=== PATIENT | female | born 1960 | race Hispanic/Latino ===

== ENCOUNTER 2020-01-25 20:12 | Emergency (ER) | payer OTHER, SELFPAY ==
[2020-01-25] MEDS ORDERED: Acetaminophen 500 MG TAB ONE (21:06)
--- NOTE | 2020-01-25 21:23 | RAD ---
EXAM: Chest PA and lateral: HISTORY: Fever and cough COMPARISON: none FINDINGS: Lung sneed are clear. Vascular markings are normal. Heart and mediastinum appear unremarkable. Osseous structures are unremarkable. IMPRESSION: Unremarkable chest
== END 2020-01-25 22:08 | disposition home or self-care (01) ==
LOC: ERS 20:12
DX: B34.9 Viral infection, unspecified (principal); J06.9 Acute upper respiratory infection, unspecified; E11.9 Type 2 diabetes mellitus without complications; E03.9 Hypothyroidism, unspecified; E78.5 Hyperlipidemia, unspecified; I10 Essential (primary) hypertension; Z79.899 Other long term (current) drug therapy; Z79.82 Long term (current) use of aspirin; Z79.84 Long term (current) use of oral hypoglycemic drugs
CPT/HCPCS: 71046; 87804; 96360

== ENCOUNTER 2020-02-02 19:27 | Inpatient (IN) | payer OTHER ==
[~2020-02-02 19:27] MED LIST: Iopamidol 370 76% 100 ML VIAL ONE
[2020-02-02] MEDS ORDERED: Ondansetron PF 4 MG/2 ML Vial ONE (20:20)
[2020-02-02 20:42] LABS: #Lymphocytes 1.6 thou/uL (1.20-3.40); #Monocytes 0.4 thou/uL (0.11-0.59); #Neutrophils 7.7 thou/uL (1.40-6.50); %Eosinophils 0.1 % (0.0-10.0); %Lymphocytes 16.5 % (21.0-51.0); %Monocytes 4.1 % (0.0-10.0); %Neutrophils 79.3 % (42.0-75.0); Hemoglobin 14.1 g/dL (12.0-16.0); Mean Corpuscular HGB CONC 34.5 g/dL (32.0-36.0); Mean Corpuscular Hemoglobin 29.8 pg (27.0-31.0); Mean Corpuscular Volume 86.5 fL (78.0-98.0); Mean Platelet Volume 8.1 fL (7.4-10.4); Platelet Count 263 thou/uL (130-400); Red Blood Cell (RBC) Count 4.73 mill/uL (4.20-5.40); White Blood Cell (WBC) Count 9.7 thou/uL (4.8-10.8)
[2020-02-02 20:48] LABS: Bacteria/HPF None Seen HPF (None Seen); Bilirubin Negative (Negative); Blood, Urine 1+ (Negative); Clarity Clear (Clear); Glucose, Urine (Dipstick) Normal (Negative); Leukocyte Negative Leu/uL (Negative); Nitrite Negative (Negative); Protein, Urine (Dipstick) 30 mg/dL (Neg-Trace); RBC/HPF 0-3 HPF (0-3); Squamous Epithelial 0-3 HPF (0-3); Urobilinogen Normal mg/dL (Less than 2); WBC/HPF 0-3 HPF (0-3)
--- NOTE | 2020-02-02 20:56 | RAD ---
RADIOGRAPH CHEST 1 VIEW: DATE: 02/02/2020 TIME: 8:51 PM HISTORY: 60-year-old female with cough COMPARISON: 01/25/2020 FINDINGS: New reticular densities at right lower lung zone. Prominent interstitial markings diffusely, especial ly at left lower lung zone, greater than previously. No cardiomegaly. No consolidation. No pneumothorax. Lateral costophrenic angles are sharp. IMPRESSION: Nonspecific mild reticular densities at the right lower lung zone, perhaps representing subsegmental atelectasis. Recommend follow-up.
[2020-02-02 21:10] LABS: ALT (SGPT) 31 U/L (8-55); AST (SGOT) 38 U/L (5-34); Albumin 3.9 g/dL (3.4-4.8); Alkaline Phosphatase 91 U/L (40-110); Anion Gap 14 mmol/L (10-20); BUN (Urea Nitrogen) 15 mg/dL (9.8-20.1); Bilirubin, Total 0.8 mg/dL (0.2-1.2); Calc. Creatinine Clearance 0 mL/min (70-130); Calcium 8.9 mg/dL (7.8-10.44); Carbon Dioxide 29 mmol/L (23-31); Chloride 91 mmol/L (98-107); Estimated GFR-MDRD 60; Globulin 4.4 g/dL (2.4-3.5); Glucose 105 mg/dL (80-115); Lipase 86 U/L (8-78); Protein, Total 8.3 g/dL (6.0-8.3); Sodium 131 mmol/L (136-145)
[2020-02-02 21:21] LABS: Potassium 2.5 mmol/L (3.5-5.1)
--- NOTE | 2020-02-02 21:41 | CT ---
CT ABDOMEN WITH CONTRAST CT PELVIS WITH CONTRAST: DATE: 02/02/2020 HISTORY: 60-year-old female with nausea, vomiting, and fever COMPARISON: None TECHNIQUE: IV injection of iodinated contrast media: administered. Oral contrast media:Not administered FINDINGS: There are multifocal patchy small ground glass opacities at the bases of the bilateral lower lobes an d right middle lobe, both centrally and in subpleural locations. There are also at least 2 small nodular consolidations at the right lung base in subpleural locations. No pleural effusion, ascites, pneumoperitoneum, or small bowel dilation. Extensive sigmoid colonic diverticulosis without diverticulitis. Left-sided calcified uterine fibroid. Questionable fatty liver. Otherwise normal liver, abdominal aorta, kidneys, adrenals, spleen, pancrea s, appendix, and urinary bladder. Cholecystectomy clips. 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 IMPRESSION: 1) multifocal pulmonary densities at the lung bases as described above are nonspecific, but this darryn shawanda can be seen with COVID-19. 2) no acute findings within abdominal cavity or pelvic cavity.
[2020-02-02] MEDS ORDERED: D5 1/2 NS w/40 mEq KCL 1,000 ML IV SCH (22:00)
[2020-02-02] MEDS ORDERED: cefTRIAXone\\ROCEPHIN 2 GM VIAL ONE (22:11)
--- NOTE | 2020-02-02 22:29 | PDOC.FPRHP ---
- History of Present Illness Chief Complaint: nausea, vomiting, diarrhea History of Present Illness: This is a 60yo F presenting to the ER with a CC of NVD. She reports her symptoms have been present over the past week. She went to the ER about a week ago and was given zofran rx. She has been unable to keep fluids down and states that she continues to have diarrhea. She endorses dry heaving and not able to eat much. She notes fever, but was negative for flu last week. She endorses general malaise. Denies any sick contacts recently. Denies any recent travel. Additionally, pt reports dry cough over last week that has improved since her last ER visit. She denies any cp, sob. No wheezing. 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 Denies contact with COVID pos pts or family. No recent travel. ED Course: 500mg azithromycin, 2g ceftriaxone, 40mEq Kcl, 1L NS, 4mg zofran, tylenol 1g - Allergies/Adverse Reactions Allergies Allergy/AdvReac Type Severity Reaction Status Date / Time No Known Drug Allergies Allergy Verified 02/03/20 02:24 - Home Medications Medication Instructions Recorded Confirmed Type Aspirin Chewable [Aspirin Chewable 81 mg PO DAILY 02/03/20 02/03/20 History Tablet] Diclofenac Potassium 50 mg PO BID 02/03/20 02/03/20 History Hydrochlorothiazide 12.5 mg PO DAILY 02/03/20 02/03/20 History Levothyroxine Sodium 100 mcg PO DAILY 02/03/20 02/03/20 History Lovastatin [Mevacor] 20 mg PO DAILY 02/03/20 02/03/20 History Metoprolol Tartrate [Lopressor] 12.5 mg PO BID 02/03/20 02/03/20 History Omeprazole 40 mg PO DAILY 02/03/20 02/03/20 History metFORMIN [Glucophage] 250 mg PO BID 02/03/20 02/03/20 History Acetaminophen [Tylenol Regular 650 mg PO Q4H PRN tab 02/04/20 Rx Strength] Acetaminophen [Tylenol Suppository] 650 mg FL Q4H PRN supp 02/04/20 Rx Azithromycin 250 mg PO QAM #4 tablet 02/04/20 Rx Guaifenesin DM 100-10 [Robitussin 15 ml PO Q4H PRN ml 02/04/20 Rx DM] Hydroxychloroquine Sulfate 200 mg PO ASDIR #10 tab 02/04/20 Rx [Plaquenil] guaiFENesin/DM ER [Mucinex DM] 2 tab PO Q12H PRN tab 02/04/20 Rx - History PMHx: Prediabetes, hypothyroidism, HLD, HTN PSHx: cholecystectomy FHx: non contributory, maternal DMII and HTN Social: Denies alcohol drug or tobacco use; lives at home with son - Review of Systems General: reports: fever/chills, weight/appetite/sleep changes, fatigue. denies : night sweats ENT: denies: nasal congestion Respiratory: reports: cough. denies: congestion, shortness of breath Cardiovascular: denies: chest pain, palpitation, edema Gastrointestinal: reports: nausea, vomiting, diarrhea. denies: constipation, abdominal pain Genitourinary: denies: dysuria Skin: denies: rashes Musculoskeletal: denies: swelling Neurological: reports: weakness. denies: syncope - Vital signs BP: 104/46, MAP: 65, Pulse: 98, Resp: 22, Temp: 102.2 (Oral), Pain: 8, O2 sat : 96 on (Room Air), Time: 02/02/2020 22:31. Weight 76kg BP: 106/57, Pulse: 92, Temp: 101.4 (Oral), Pain: 9, O2 sat: 98 on (Room Air), Time: 02/02/2020 19:28 - Physical Exam Constitutional: NAD, awake, alert and oriented, well developed HEENT: normocephalic and atraumatic, PERRLA, EOMI, grossly normal vision, grossly normal hearing Neck: supple, FROM, trachea midline Chest: no-tender to palpation Heart: RRR, normal S1/S2, no murmurs/rubs/gallops, pulses present, no edema Lungs: CTAB, no respiratory distress, good air movement, no rales/rhonchi, no wheezing, no retractions Abdomen: soft, non-tender, bowel sounds present Musculoskeletal: normal structure Neurological: no focal deficit Skin: no rash/lesions, good turgor, capillary refill <2 seconds Psychiatric: normal mood and affect FMR H&P: Results - Labs Result Diagrams: 02/04/20 04:25 02/04/20 04:25 Lab results: WBC 9.7 thou/uL (4.8-10.8) 02/02/20 20:35 Hgb 14.1 g/dL (12.0-16.0) 02/02/20 20:35 Hct 40.9 % (36.0-47.0) 02/02/20 20:35 MCV 86.5 fL (78.0-98.0) 02/02/20 20:35 Plt Count 263 thou/uL (130-400) 02/02/20 20:35 Neutrophils % 79.3 % (42.0-75.0) H 02/02/20 20:35 Sodium 131 mmol/L (136-145) L 02/02/20 20:35 Potassium 2.5 mmol/L (3.5-5.1) L* 02/02/20 20:35 Chloride 91 mmol/L (98-107) L 02/02/20 20:35 Carbon Dioxide 29 mmol/L (23-31) 02/02/20 20:35 BUN 15 mg/dL (9.8-20.1) 02/02/20 20:35 Creatinine 0.94 mg/dL (0.6-1.1) 02/02/20 20:35 Glucose 105 mg/dL (80-115) 02/02/20 20:35 Lactic Acid 1.4 mmol/L (0.5-2.2) 02/02/20 20:35 Calcium 8.9 mg/dL (7.8-10.44) 02/02/20 20:35 Total Bilirubin 0.8 mg/dL (0.2-1.2) 02/02/20 20:35 AST 38 U/L (5-34) H 02/02/20 20:35 ALT 31 U/L (8-55) 02/02/20 20:35 Alkaline Phosphatase 91 U/L (40-110) 02/02/20 20:35 Serum Total Protein 8.3 g/dL (6.0-8.3) 02/02/20 20:35 Albumin 3.9 g/dL (3.4-4.8) 02/02/20 20:35 Lipase 86 U/L (8-78) H 02/02/20 20:35 Urine Ketones 20 mg/dL (Negative) A 02/02/20 20:34 Urine Blood 1+ (Negative) A 02/02/20 20:34 Urine Nitrite Negative (Negative) 02/02/20 20:34 Ur Leukocyte Esterase Negative Carolyne/uL (Negative) 02/02/20 20:34 Urine RBC 0-3 HPF (0-3) 02/02/20 20:34 Urine WBC 0-3 HPF (0-3) 02/02/20 20:34 Ur Squamous Epith Cells 0-3 HPF (0-3) 02/02/20 20:34 Urine Bacteria None Seen HPF (None Seen) 02/02/20 20:34 - EKG Interpretation EKG: NSR rate 104, no st or t wave changes - Radiology Interpretation CT scan - abdomen Status: image reviewed by me, report reviewed by me (lower lung base changes concerning for COVID pathology, abdomen normal) FMR H&P: A/P - Problem List (1) Sepsis Status: Acute Code(s): A41.9 - SEPSIS, UNSPECIFIED ORGANISM (2) Viral illness Status: Acute (3) Hypokalemia due to excessive gastrointestinal loss of potassium Status: Acute Code(s): E87.6 - HYPOKALEMIA (4) Diabetes Status: Suspected Code(s): E11.9 - TYPE 2 DIABETES MELLITUS WITHOUT COMPLICATIONS Qualifiers: Diabetes mellitus type: type 2 (5) HTN (hypertension) Status: Acute Code(s): I10 - ESSENTIAL (PRIMARY) HYPERTENSION (6) HLD (hyperlipidemia) Status: Acute Code(s): E78.5 - HYPERLIPIDEMIA, UNSPECIFIED - Plan Sepsis: - admit to tele IP - likely 2/2 viral illness, flu neg, rvp and COVID pending - cont IVF resuscitation and zofran prn for vomiting - tylenol for fever control avoid ibuprofen for COVID concerns - check procal, cont abx based on procal results, s/p rocephin azithromycin in ED Hypokalemia 2/2 N/V/D - Will replace K as needed - Check Mg/Phos - Monitor I/Os - mIVF - Will recheck electrolytes in the AM Febrile illness, CAP vs COVID r/o CT showing multifocal atelectasis. - continue abx, may discontinue if Procal neg - Will obtain flu and RVP; COVID pending - Tylenol PRN for fever DMII - home meds, mild SS HTN - hold home meds, will monitor HLD - home meds Hypothyroidism - home meds, will obtain TSH Dispo: admit to tele, obs Code status: FULL Diet: Reg VTE: lovenox Case discussed with Dr. Wetzel Disposition/LOS: Stable, will admit to tele and replace fluids. Replace elytes. COVID and RVP pending. LOS >2 days FMR H&P: Upper Level - Plan Date/Time: 02/02/202227 Upper level h&p Addendum - Attending - Attending Attestation Date/Time: 03/09/20 [id number] I personally evaluated the patient and discussed the management with Dr. Cruz on 02/02/20. I agree with the History, Examination, Assessment and Plan documented above with any addition or exceptions noted below. 60 y.o. F with h/o Prediabetes, hypothyroidism, HLD, HTN p/w'd 1 week N/V/D, IVVD. Pt. has had dry cough as well w/o dyspnea. Admit for IVF resuscitation, PUI COVID for symptoms.
[2020-02-02] MEDS ORDERED: Acetaminophen 500 MG TAB ONE (22:46)
[2020-02-02] MEDS ORDERED: Azithromycin 500 MG VIAL ONE (22:49)
[2020-02-02 22:58] LABS: Phosphorus 2.3 mg/dL (2.3-4.7)
[2020-02-03] MEDS ORDERED: Ondansetron PF 4 MG/2 ML Vial IVP PRN (00:02)
[2020-02-03] MEDS ORDERED: HumaLOG 300 UNITS/3 ML VIAL SC PRN (00:02)
[2020-02-03] MEDS ORDERED: Ondansetron ODT 4 MG TAB PO PRN (00:02)
[2020-02-03] MEDS ORDERED: Dextrose 5% in Water 1,000 ML IV PRN (00:02)
[2020-02-03] MEDS ORDERED: Acetaminophen 650 MG Suppository PR PRN (00:02)
[2020-02-03] MEDS ORDERED: Dextrose 50% Abboject 50 ML SYRINGE SLOW IVP PRN (00:02)
[2020-02-03] MEDS ORDERED: Calcium Carbonate 500 MG ChewTAB PO PRN (00:02)
[2020-02-03] MEDS ORDERED: Guaifenesin DM 100-10/5 ML UDCUP PO PRN (00:02)
[2020-02-03] MEDS ORDERED: Potassium Chloride 40 MEQ in Sodium Chloride 0.9% 250 ML 250 ML IVPB SCH (00:15)
[2020-02-03 02:35] VITALS: BMI 31.1
[2020-02-03] MEDS: Potassium Chloride 20 MEQ in Premix Bag 1 BAG IVPB SCH ×4 (03:31→12:26)
[2020-02-03 04:46] LABS: #Basophils 0.1 thou/uL (0.0-0.2); #Lymphocytes 1.4 thou/uL (1.20-3.40); #Monocytes 0.4 thou/uL (0.11-0.59); #Neutrophils 4.4 thou/uL (1.40-6.50); %Basophils 1.1 % (0.0-1.0); %Monocytes 6.2 % (0.0-10.0); %Neutrophils 69.7 % (42.0-75.0); Hemoglobin 10.7 g/dL (12.0-16.0); Mean Corpuscular HGB CONC 34.3 g/dL (32.0-36.0); Mean Corpuscular Hemoglobin 29.6 pg (27.0-31.0); Mean Corpuscular Volume 86.2 fL (78.0-98.0); Mean Platelet Volume 8.3 fL (7.4-10.4); Platelet Count 198 thou/uL (130-400); RBC Distribution Width 12.9 % (11.5-14.5); White Blood Cell (WBC) Count 6.3 thou/uL (4.8-10.8)
[2020-02-03 05:02] LABS: ALT (SGPT) 21 U/L (8-55); AST (SGOT) 26 U/L (5-34); Albumin 2.9 g/dL (3.4-4.8); Alkaline Phosphatase 64 U/L (40-110); Anion Gap 10 mmol/L (10-20); BUN (Urea Nitrogen) 7 mg/dL (9.8-20.1); Bilirubin, Total 0.3 mg/dL (0.2-1.2); Calc. Creatinine Clearance 106 mL/min (70-130); Calcium 7.4 mg/dL (7.8-10.44); Carbon Dioxide 22 mmol/L (23-31); Chloride 106 mmol/L (98-107); Estimated GFR-MDRD Greater than 90; Globulin 3.2 g/dL (2.4-3.5); Glucose 74 mg/dL (80-115); Potassium 2.9 mmol/L (3.5-5.1); Protein, Total 6.1 g/dL (6.0-8.3); Sodium 135 mmol/L (136-145)
[2020-02-03] MEDS: Levothyroxine Sodium 100 MCG TAB PO SCH (06:08)
[2020-02-03] MEDS ORDERED: guaiFENesin/DM ER PO PRN (07:08)
--- NOTE | 2020-02-03 07:23 | PDOC.FM ---
- Subjective Subjective: Coughing overnight. Vomiting has resolved. Reports some diarrhea. Denies SOB. - Objective MAR Reviewed: Yes Vital Signs & Weight: Vital Signs (12 hours) Temp Pulse Resp BP Pulse Ox 02/03/20 04:02 97.3 F L 75 20 101/54 L 98 02/03/20 01:55 97.5 F L 77 22 H 108/54 L 95 Weight Weight 74.616 kg Result Diagrams: 02/03/20 04:22 02/03/20 04:22 Phys Exam - Physical Examination Constitutional: NAD HEENT: moist MMs Neck: supple Respiratory: no wheezing, clear to auscultation bilateral Cardiovascular: RRR, no significant murmur Gastrointestinal: soft, positive bowel sounds RUQ tenderness over hernia Musculoskeletal: no edema Neurological: moves all 4 limbs Psychiatric: normal affect, A&O x 3 Skin: no rash Dx/Plan - Plan Plan: Sepsis likely 2/2 viral illness vs CAP - CT with multifocal pulm densities at lung bases - Flu & RVP neg, COVID pending - Isolation precautions until lab results - Continue IVF and Zofran until tolerating PO - Tylenol PRN for fever, avoid NSAIDs - Procal neg - Continue Ceftriaxone and Azithro Hypokalemia 2/2 N/V/D - Mg nml. Continue aggressive KCl replacement DMII - Cont home meds, mild SSI - CC diet HTN - hold home meds, will monitor HLD - Cont home meds Hypothyroidism - Cont home meds - Nml TSH Code status: FULL DVT ppx: lovenox Addendum - Attending - Attending Attestation Date/Time: 02/03/20 1302 I personally evaluated the patient and discussed the management with Dr. Lee I agree with the History, Examination, Assessment and Plan documented above with any addition or exceptions noted below - Patient feeling a little better. Vomiting resolved; Has had 1 loose stool this morning. Cough productive. Afebrile VSS A/P: 1) Dehydration secondary to N/V/D- improved; continue IVF; monitor I/Os. 2) Abnormal CT- with pulmonary infiltrates- COVID pending; Flu and RVP negative; Continue IV abx and supportive care. 3) Hypokalemia- improving ; continue replacement. 4) DN- monitor BG
[2020-02-03] MEDS: Lactated Ringer's 1,000 ML IV SCH ×3 (08:29→23:21)
[2020-02-03] MEDS: Enoxaparin Sodium 40 MG/0.4 ML SYRINGE SC SCH (08:30)
[2020-02-03] MEDS: Potassium Chloride 20 MEQ TAB PO SCH ×2 (08:30→16:22)
[2020-02-03] MEDS: Simvastatin 5 MG TAB PO SCH (08:30)
[2020-02-03] MEDS: Aspirin Chewable 81 MG TAB PO SCH (08:31)
[2020-02-03] MEDS: Metoprolol Tartrate 25 MG TAB PO SCH ×2 (08:31→23:20)
[2020-02-03] MEDS: Acetaminophen 325 MG TAB PO PRN (09:26)
--- NOTE | 2020-02-03 14:49 | EKG ---
Test Reason : Blood Pressure : / mmHG Vent. Rate : 093 BPM Atrial Rate : 091 BPM P-R Int : 000 ms QRS Dur : 078 ms QT Int : 410 ms P-R-T Axes : 000 005 006 degrees QTc Int : 509 ms Normal sinus rhythm Nonspecific ST and T wave abnormality Prolonged QT Abnormal ECG Confirmed by TALIB ESTEBAN, POP ([id number]), editorial manager RADHA PIERRE ([id number]) on 02/03/2020 2:48:55 PM Referred By: Confirmed By:POP MAYERS MD
[2020-02-03] MEDS ORDERED: Azithromycin 500 MG in Sodium Chloride 0.9% 250 ML 250 ML IVPB SCH (23:00)
[2020-02-03] MEDS ORDERED: cefTRIAXone\\ROCEPHIN 1 GM in Sodium Chloride 0.9% 100 ML IVPB SCH (23:45)
[2020-02-04] MEDS: Lactated Ringer's 1,000 ML IV SCH ×2 (02:13→08:54)
[2020-02-04] MEDS: Acetaminophen 325 MG TAB PO PRN (02:14)
[2020-02-04 04:39] LABS: #Lymphocytes 1.7 thou/uL (1.20-3.40); #Monocytes 0.3 thou/uL (0.11-0.59); #Neutrophils 3.1 thou/uL (1.40-6.50); %Eosinophils 0.2 % (0.0-10.0); %Lymphocytes 32.4 % (21.0-51.0); %Monocytes 6.5 % (0.0-10.0); %Neutrophils 60.9 % (42.0-75.0); Hemoglobin 9.9 g/dL (12.0-16.0); Mean Corpuscular HGB CONC 34.1 g/dL (32.0-36.0); Mean Corpuscular Hemoglobin 29.7 pg (27.0-31.0); Mean Corpuscular Volume 87.2 fL (78.0-98.0); Mean Platelet Volume 7.8 fL (7.4-10.4); Platelet Count 224 thou/uL (130-400); Red Blood Cell (RBC) Count 3.34 mill/uL (4.20-5.40); White Blood Cell (WBC) Count 5.1 thou/uL (4.8-10.8)
[2020-02-04 05:04] LABS: ALT (SGPT) 18 U/L (8-55); AST (SGOT) 25 U/L (5-34); Albumin 2.8 g/dL (3.4-4.8); Alkaline Phosphatase 56 U/L (40-110); Anion Gap 14 mmol/L (10-20); BUN (Urea Nitrogen) 4 mg/dL (9.8-20.1); Bilirubin, Total 0.3 mg/dL (0.2-1.2); Calc. Creatinine Clearance 116 mL/min (70-130); Calcium 7.9 mg/dL (7.8-10.44); Carbon Dioxide 18 mmol/L (23-31); Chloride 108 mmol/L (98-107); Estimated GFR-MDRD Greater than 90; Globulin 3.2 g/dL (2.4-3.5); Glucose 83 mg/dL (80-115); Potassium 3.5 mmol/L (3.5-5.1); Sodium 136 mmol/L (136-145)
[2020-02-04] MEDS: Levothyroxine Sodium 100 MCG TAB PO SCH (06:16)
--- NOTE | 2020-02-04 07:26 | PDOC.FM ---
- Subjective Subjective: Nausea and vomiting resolved. Endorses cough and fever overnight. Denies SOB. Lives with son at home. Works at [employer]. - Objective MAR Reviewed: Yes Vital Signs & Weight: Vital Signs (12 hours) Temp Pulse Resp BP Pulse Ox 02/04/20 06:55 98 02/04/20 04:00 99.5 F 71 18 100/54 L 94 L 02/03/20 20:00 100.4 F H 78 18 102/55 L 96 Weight Admit Weight 74.616 kg Weight 74.616 kg I&O: 02/03/20 02/04/20 02/05/20 06:59 06:59 06:59 Intake Total 3060 Balance 3060 Result Diagrams: 02/04/20 04:25 02/04/20 04:25 Phys Exam - Physical Examination Constitutional: NAD HEENT: moist MMs Neck: supple Respiratory: no wheezing, clear to auscultation bilateral Cardiovascular: RRR Gastrointestinal: soft, non-tender Musculoskeletal: no edema Neurological: moves all 4 limbs Psychiatric: normal affect, A&O x 3 Skin: normal turgor Dx/Plan - Plan Plan: COVID positive - Isolation precautions - Tylenol PRN for fever, avoid NSAIDs - Starting Hydroxychloroquine as pt in high risk group and symptomatic. Continue Azithromycin. - D/c Ceftriaxone. - Dc IVF now that tolerating PO. Sepsis 2/2 COVID, sepsis resolved - CT with multifocal pulm densities at lung bases - Flu & RVP neg - Zofran PRN for nausea. At risk for prolonged QT with Azithro, Hydroxychloroquine and Zofran, monitoring on tele DMII - Cont home meds, mild SSI - CC diet HTN - hold home meds, will monitor HLD - Cont home meds Hypothyroidism - Cont home meds - Nml TSH Hypokalemia, resolved Code status: FULL DVT ppx: Lovenox Addendum - Attending - Attending Attestation Date/Time: 02/04/20 1126 I personally evaluated the patient and discussed the management with Dr. Lee I agree with the History, Examination, Assessment and Plan documented above with any addition or exceptions noted below- Patient feeling better. No further N/V; Tolerating po. Few loose stools. Tm 100.4. VSS. A/P: 1) Hypokalemia- resolved. 2) COVID (+) - No O2 requirement; resp status stable; Plan to d/c home later today.
[2020-02-04] MEDS: Metoprolol Tartrate 25 MG TAB PO SCH (08:55)
[2020-02-04] MEDS: Simvastatin 5 MG TAB PO SCH (08:56)
[2020-02-04] MEDS: Aspirin Chewable 81 MG TAB PO SCH (08:56)
[2020-02-04] MEDS: Enoxaparin Sodium 40 MG/0.4 ML SYRINGE SC SCH (08:56)
[2020-02-04] MEDS ORDERED: Hydroxychloroquine Sulfate 200 MG TAB PO SCH (09:00)
[2020-02-04 12:03] VITALS: BP 123/61; TEMP 98.2
--- NOTE | 2020-02-04 14:33 | DIS ---
DATE OF ADMISSION: 02/02/2020 DATE OF DISCHARGE: 02/04/2020 RESIDENT: Tamela Lee, PGY-II. DISCHARGE ATTENDING: Leatha Almaguer MD CONSULTATIONS: None. PROCEDURES: 1. Chest x-ray, 02/02/2020, nonspecific mild reticular densities at the right lower lung zone, perhaps representing subsegmental atelectasis. 2. Abdominal pelvis CT, 02/02/2020, multifocal pulmonary densities at the lung bases as could be seen with COVID-19. PRIMARY DIAGNOSES: 1. Sepsis secondary to COVID-19, resolved. 2. COVID-19 positive. SECONDARY DIAGNOSES: 1. Type 2 diabetes. 2. Hypertension. 3. Hyperlipidemia. 4. Hypothyroidism. 5. Hypokalemia, resolved. DISCHARGE MEDICATIONS: 1. Plaquenil 200 mg 2 tablets on the night of discharge, followed by 4 days of 200 mg b.i.d. 2. Azithromycin 250 mg daily x4 days. 3. Aspirin 81 mg daily. 5. Mucinex or Robitussin p.r.n. 6. Levothyroxine 100 mcg daily. 7. Lovastatin 20 mg daily. 8. Metoprolol tartrate 12.5 mg b.i.d. 9. Omeprazole 40 mg daily. 10. Tylenol p.r.n. 11. Diclofenac 50 mg b.i.d. once recovered from coronavirus. 12. Hydrochlorothiazide 12.5 mg daily. 13. Metformin 250 mg b.i.d. DISCONTINUED MEDICATIONS: None. HISTORY OF PRESENT ILLNESS AND HOSPITAL COURSE: Ms. Dugan is a 60-year-old female, who presented to the ER with a chief complaint of nausea, vomiting, diarrhea over the last week. She had been seen a week prior in the ER and was given Zofran, however, found out it to be ineffective and was unable to keep foods down. She had no sick contacts or recent travel exposure. Denies shortness of breath, chest pain, or wheezing. However, she did have a cough. She works at [employer]. Denies any contact with COVID positive patients. In the ER, she was given azithromycin 500 mg, 2 g of ceftriaxone, and 40 mEq of potassium chloride, 1 L normal saline, 4 mg of Zofran, and 1 g of Tylenol. She was noted to have a chest x-ray with a lower lobe infiltrate, followed by CT suspicious for COVID-19. Flu and RVP were both negative. COVID testing was positive. She was taken off IV fluids and was able to tolerate p.o. after given Zofran p.r.n. procalcitonin was negative. Ceftriaxone was discontinued. She was discharged home in good condition. She did report having an adult son who lives with her. Health Department was contacted and spoke with Dr. Luna, american indian studies professor, who recommended 14-day course quarantine for son and minimal interaction between her and her son once she returned home to prevent cross contamination. During her stay, she was also noted to be hypokalemic, likely from the nausea, vomiting, diarrhea. At admission, 2.5 and 2.9, 3.5 at discharge. In regard to her chronic medical conditions of type 2 diabetes, hypertension, hyperlipidemia, and hypothyroidism, she was continued on home medications and these were stable throughout the course of hospitalization. DISPOSITION: Stable. DISCHARGE INSTRUCTIONS: 1. Location: Home. 2. Diet: Carb-consistent. 3. Activity: Restriction with quarantine. 4. Followup: Follow up with PCP as needed or return to the emergency room if severe respiratory symptoms developed. Job ID: [id number] [email or web address]
[2020-02-05] MEDS ORDERED: Hydroxychloroquine Sulfate 200 MG TAB PO SCH (09:00)
--- NOTE | 2020-02-08 11:02 | PQF ---
Stefania Dugan ANNA MD [id number] CLINICAL DOCUMENTATION CLARIFICATION FORM: POST DISCHARGE Addendum to original discharge summary date: ____ Late entry note date: __ DATE:02/08/2020 ATTN: ISABELLE NAGEL MD Please exercise your independent, professional judgment in responding to the clarification form. Clinical indicators are provided on the bottom of this form for your review Please check appropriate box(s) to clarify if the following diagnosis has been ruled in or ruled out:Pneumonia [ x ] Ruled in diagnosis- viral pneumonia [ x] Continue to treat [ ] Resolved [ ] Ruled out diagnosis [ ] Cannot rule out diagnosis [ ] Other diagnosis [ ] Unable to determine In addition, please specify: Present on Admission (POA): [ x ] Yes [ ] No [ ] Unable to determine For continuity of documentation, please document condition throughout progress notes and discharge summary. Thank You. CLINICAL INDICATORS - SIGNS / SYMPTOMS / LABS Pneumonia-Documented in ED on 02/01 by Rogelio Mccain Sepsis likely 2/2 viral illness vs CAP -Documented in family medicine progress note on 02/[address] with multifocal pulm densities at lung bases--Documented in family medicine progress note on 02/02 by tamela Lee Sepsis secondary to COVID-19 resolved -Documented in discharge summary on 02/03 by Tamela Lee MD Chest x ray 02/01 , Nonspecific mild reticular densities at the right lower lung zone perhaps representing subsegmental atelectasis--Documented in discharge summary on 02/03 by Tamela Lee MD RISK FACTORS Sepsis secondary to COVID-19 resolved -Documented in discharge summary on 02/03 by Tamela Lee MD TREATMENTS Continue ceftriaxone and azithro-Documented in family medicine progress note on 02/02 by tamela Lee Tylenol PRN for fever-Documented in family medicine progress note on 02/02 by tamela Lee 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 All Rights Reserved [email or web address]
== END 2020-02-04 16:35 | disposition home or self-care (01) | DRG 871 ==
LOC: ERS 19:27 → 2NO 22:28
PROVIDERS: ADMIT Family Medicine; ATTEND Family Medicine
PROC: 8E0ZXY6 Isolation (ICD-10-PCS; principal; 2020-02-02)
DX: A41.89 Other specified sepsis (principal); J18.9 Pneumonia, unspecified organism; J98.11 Atelectasis; B97.29 Other coronavirus as the cause of diseases classified elsewhere; E11.9 Type 2 diabetes mellitus without complications; I10 Essential (primary) hypertension; E03.9 Hypothyroidism, unspecified; E78.5 Hyperlipidemia, unspecified; E87.6 Hypokalemia; E86.0 Dehydration; Z90.49 Acquired absence of other specified parts of digestive tract; Z83.3 Family history of diabetes mellitus; Z82.49 Family history of ischemic heart disease and other diseases of the circulatory system; R40.2362 Coma scale, best motor response, obeys commands, at arrival to emergency department; R40.2142 Coma scale, eyes open, spontaneous, at arrival to emergency department; R40.2252 Coma scale, best verbal response, oriented, at arrival to emergency department
CPT/HCPCS: 36415; 36416; 71045; 74177; 80053; 81003; 81015; 83605; 83690; 83735; 84100; 84145; 84443; 85025; 87040; 87086; 87633; 87804; 93005; 96361; 96365; 96366; 96367; 96375; 99292; J0456; J0696; J1650; J2405; J3480; J3490; J7050; Q9967; U0001

== ENCOUNTER 2021-02-24 10:10 | Emergency (ER) | payer SELFPAY | END 2021-02-24 12:30 | disposition home or self-care (01) | LOC: ERS 10:10 | DX: J20.8 Acute bronchitis due to other specified organisms (principal); E11.9 Type 2 diabetes mellitus without complications; E03.9 Hypothyroidism, unspecified; E78.5 Hyperlipidemia, unspecified; E78.00 Pure hypercholesterolemia, unspecified; I10 Essential (primary) hypertension; Z86.73 Personal history of transient ischemic attack (TIA), and cerebral infarction without residual deficits; Z79.84 Long term (current) use of oral hypoglycemic drugs; Z79.82 Long term (current) use of aspirin; Z79.899 Other long term (current) drug therapy | CPT/HCPCS: 71045; 87081; 87430 ==

== ENCOUNTER 2022-05-05 12:26 | Emergency (ER) | payer SELFPAY ==
[2022-05-05] MEDS ORDERED: Acetaminophen 325 MG TAB ONE (14:54)
[2022-05-05] MEDS ORDERED: Ibuprofen 200 MG TAB ONE (14:54)
[2022-05-05 15:36] LABS: Bacteria/HPF Rare-Few HPF (None Seen); Bilirubin Negative (Negative); Blood, Urine 1+ (Negative); Clarity Clear (Clear); Glucose, Urine (Dipstick) Normal (Negative); Ketone, Urine Negative (Negative); Leukocyte 25 Leu/uL (Negative); Nitrite Negative (Negative); Protein, Urine (Dipstick) 100 mg/dL (Neg-Trace); Specific Gravity, Urine 1.041 (1.002-1.036); Squamous Epithelial 0-3 HPF (0-3)
[2022-05-05] MEDS ORDERED: Ondansetron ODT 4 MG TAB ONE (15:47)
== END 2022-05-05 16:32 | disposition home or self-care (01) ==
LOC: ERS 12:26
DX: U07.1 COVID-19 (principal); Z20.822 Contact with and (suspected) exposure to COVID-19
CPT/HCPCS: 81003; 81015; 87804; 99284; Q0162; U0003; U0005